=== PATIENT | male | born 1970 | race Caucasian/White ===

== ENCOUNTER → 2018-07-09 11:41 | Outpatient (CLI) | payer SELFPAY ==
[2018-07-09 15:46] LABS: AST(SGOT) 24 U/L (15-37); Alanine Aminotransfer ALT/SGPT 51 U/L (16-61); Albumin, Serum 3.9 g/dL (3.2-5.0); Alkaline Phosphatase 80 U/L (45-117); Anion Gap 12 (5-15); BUN 12 mg/dL (7-18); BUN/Creat Ratio 10.6 RATIO (10-20); Chloride 106 mmol/L (98-107); Cholesterol 192 mg/dL (200); Creatinine, Serum 1.13 mg/dL (0.70-1.30); EST Glomerular Filtration Rate 74 mL/min (>60); Est Glom Filt Rate - Afr Amer 89 mL/min (>60); Globulin 3.9 g/dL (2.2-4.2); Glucose 89 mg/dL (74-106); High Density Lipoprotein 39 mg/dL; Potassium 4.1 mmol/L (3.5-5.1); Protein, Total 7.8 g/dL (6.4-8.2); Sodium Level 143 mmol/L (136-145); Thyroid Stim Hormone (TSH) 2.35 uIU/mL (0.358-3.74); Triglycerides 154 mg/dL; Very Low Density Lipoprotein 31 mg/dL (5-40)
[2018-07-09 15:49] LABS: Absolute Lymphocyte Count 1.83 X10^3/ul (0.83-4.51); Absolute Neutrophil Count 3.6 X10^3/uL (2.0-7.7); Basophil# 0.03 X10^3/uL; Basophil% 0.5 % (0-1); Eosinophil# 0.21 X10^3/uL; Eosinophils% 3.4 % (0-5); Hematocrit 47.6 % (40-54); Hemoglobin 16.1 g/dl (13.0-16.5); Lymphocyte # 1.83 X10^3/ul (4.0); Lymphocyte % 29.5 % (19-41); Mean Corp Hgb Conc 33.8 g/gl (32-36); Mean Corpuscular Hgb 31.6 pg (27.0-32.0); Mean Corpuscular Volume 93.5 fL (80-94); Mean Platelet Vol. 10.5 fl (6.2-12.0); Monocyte% 8.1 % (0-10); Neutrophil # 3.62 X10^3/uL (2.7-7.7); Neutrophil % 58.3 % (47-70); Platelet Count 272 K/mm3 (150-450); RBC Distribution Width SD 44.4 fl (35.1-43.9); Red Blood Count 5.09 M/mm3 (4.6-6.2); White Blood Count 6.2 K/mm3 (4.4-11.0)
[2018-07-09 16:12] LABS: POSITIVE COUNT NO; POSITIVE DIFFERENTIAL NO; POSITIVE MORPHOLOGY NO
[2018-07-09 16:13] LABS: Hemoglobin A1c 5.5 % (4.2-6.3)
== END ==
PROVIDERS: Family Provider Family Medicine; PCP Family Medicine; Visit Provider Family Medicine
DX: Z00.00 Encounter for general adult medical examination without abnormal findings (principal); R53.81 Other malaise; R53.83 Other fatigue
CPT/HCPCS: 36415; 80053; 80061; 83036; 84443; 85025

== ENCOUNTER → 2020-08-14 12:48 | Outpatient (CLI) | payer OTHER, SELFPAY ==
--- NOTE | 2020-08-14 12:52 | ECHOD_ITS ---
Reason For Study: unspecified atrial fibrillation Procedure This was a 2D Doppler, Color Flow transthoracic echocardiogram. The exam was of adequate technical quality. Exam performed in department. Left Ventricle Normal LV size. Left ventricular systolic function is normal. The estimated ejection fraction is 65 %. No evidence for diastolic dysfunction. No regional wall motion abnormalities noted. Right Ventricle Normal RV size. Normal systolic function. Atria Normal left atrium. Normal right atrium. No doppler evidence for ASD. Mitral Valve There is no mitral annular calcification. Mild diffuse mitral valve thickening. Trivial mitral valve insufficiency. Tricuspid Valve Normal tricuspid valve. Trivial tricuspid valve insufficiency. Unable to estimate RV systolic pressure due to insufficient tricuspid regurgitant envelope. Aortic Valve Trisinus/trileaflet aortic valve. Normal aortic valve. Pulmonic Valve The pulmonic valve is not well visualized. Great Vessels Normal sized aortic root. Pericardium/Pleural No pericardial effusion. MMode/2D Measurements & Calculations LVIDd: 4.6 cm IVSd: 0.99 cm Ao root diam: 3.2 cm LVIDs: 2.9 cm LVPWd: 1.0 cm FS: 38.2 % LAV(MOD-bp): 54.5 ml LA A4 area: 18.8 cm2 LA dimension(2D): 3.5 cm LAV(MOD-bp) Indexed: 26.1 ml/m2 LAV(MOD-sp2): 54.6 ml LAV(MOD-sp4): 54.6 ml RA A4 area: 17.8 cm2 Time Measurements MV dec time: 0.20 sec Doppler Measurements & Calculations MV E max garrett: 67.6 cm/sec Lat Peak E' Garrett: 10.8 cm/sec Med Peak E' Garrett: 10.5 cm/sec MV A max garrett: 46.0 cm/sec E/E' lat: 6.3 E/E' med: 6.4 MV E/A: 1.5 Ao V2 max: 128.6 cm/sec LV V1 max: 109.1 cm/sec PA V2 max: 131.2 cm/sec Ao max P.6 mmHg LV V1 max P.8 mmHg Interpretation Summary Left ventricular systolic function is normal. The estimated ejection fraction is 65 %. Mild diffuse mitral valve thickening. Trivial mitral valve insufficiency. Trivial tricuspid valve insufficiency. Unable to estimate RV systolic pressure due to insufficient tricuspid regurgitant envelope. No evidence for diastolic dysfunction. Ordering Physician: Radha Jorgensen Referring Physician: Radha Jorgensen Performed By: Sheree Gee, CIARRA, RVT
== END ==
PROVIDERS: PCP Family Medicine; Referring Provider Family Medicine; Visit Provider Family Medicine
DX: I48.91 Unspecified atrial fibrillation (principal)
CPT/HCPCS: 93306

== ENCOUNTER → 2020-10-27 | Outpatient (CLI) | payer OTHER, SELFPAY ==
[2020-08-26 15:11] VITALS: BMI 28.3
== END | disposition home or self-care (01) ==
PROVIDERS: PCP Family Medicine; Visit Provider Family Medicine
DX: L03.039 Cellulitis of unspecified toe (principal)
CPT/HCPCS: 87070; 87077; 87205

== ENCOUNTER 2020-12-18 10:30 | Observation (INO) | payer OTHER, SELFPAY ==
[2020-08-26 15:11] VITALS: BMI 28.3
[2020-12-18] VITALS (17 sets, daily range): BP systolic 105–138; BP diastolic 54–80; PULSE 57–77; RESP 12–20; TEMP 36.2–37.1; O2SAT 94–98; BMI 28.7; BMI 28.8
--- NOTE | 2020-12-18 11:06 | RAD_ITS ---
STUDY: X-RAY CHEST REASON FOR EXAM: Male, 50 years old. Chest pain TECHNIQUE: Single AP portable view of the chest. COMPARISON: None. FINDINGS: EKG electrodes are seen. The lungs are clear and expanded. There is no demonstrated pleural abnormality. Normal size heart. A telemetry device is seen overlying the mid thorax. Normal mediastinum and antelmo. Normal visualized pulmonary arteries. Normal visualized aortic arch and descending thoracic aorta. Normal visualized thoracic spine. Normal visualized ribs, clavicles, and shoulders. There is no demonstrated abnormality of the visualized soft tissue structures of the upper abdomen. RAD/Chest 1 View (Portable) IMPRESSION: No acute abnormality is seen. Electronically Signed: Raymond Mendiola MD at 12:32 EDT , Service support ,
--- NOTE | 2020-12-18 11:06 | EKG12_ITS ---
Test Reason : PALPS Blood Pressure : / mmHG Vent. Rate : 065 BPM Atrial Rate : 065 BPM P-R Int : 140 ms QRS Dur : 090 ms QT Int : 390 ms P-R-T Axes : 056 042 027 degrees QTc Int : 405 ms Normal sinus rhythm Normal ECG Confirmed by JUSTIN TAY, SONG ([id number]), publications editor MARYCRUZ MENA ([id number]) on 12/21/2020 1:10:18 PM Referred By: ANA Confirmed By:SONG ANDERSON MD
--- NOTE | 2020-12-18 11:07 | EDS_ITS ---
HPI History of Present Illness Chief Complaint: Palpitations Informant: patient Narrative Narrative: 50-year-old male was sent to the emergency room by his registered medical transcriptionist after event monitor revealed an episode of atrial fibrillation that led to ventricular tachycardia. Patient states that he was doing CrossFit at the time. He has been admitted to outside facility for A. fib that broke during the night. He has had episodes where he felt he was possibly in A. fib. Were these continued episodes that led to the event monitor. Patient denies any symptoms at the current time [facility] Medical History (Updated 12/18/20 @ 11:[address] Sina Vazquez DO) New onset atrial fibrillation (08/03/20) Home Medications aspirin 325 mg tablet 325 mg PO DAILY 08/24/20 [History Last Taken Unknown] amoxicillin-pot clavulanate 1 tab PO DAILY 12/18/20 [History Last Taken Unknown] Allergy/AdvReac Type Severity Reaction Status Date / Time No Known Allergies Allergy Verified 12/18/20 10:31 Family History Father Lung cancer Surgical History History of Achilles tendon repair Social History Smoking Status: Never smoker alcohol intake: current alcohol intake frequency: holidays/special occasions only ROS ROS ED Constitutional Constitutional ED: Denies chills or weight loss Eyes Eyes: Denies change in vision or diplopia ENT ENT ED: Denies ear pain, rhinorrhea or sore throat Cardiovascular Cardiovascular: Reports chest pain and palpitations; Denies orthopnea or racing heartbeat Respiratory/Chest Respiratory/Chest: Denies cough, dyspnea or orthopnea Gastrointestinal Gastrointestinal: Denies abdominal pain, diarrhea, nausea or vomiting Genitourinary Genitourinary ED: Denies dysuria, hematuria or urinary frequency Musculoskeletal Musculoskeletal: Denies arthralgias or myalgias Integumentary Denies abscess or rash Neurologic Neurologic: Denies headache(s) or weakness Psychiatric Psychiatric: Denies anxiety, depression, suicidal ideation or suicidal thoughts Endocrine Endocrinology: Denies polydipsia, polyphagia or polyuria Allergic/Immunologic Allergic/Immunologic ED: Denies mouth swelling, tongue swelling or urticaria EXAM Physical Exam Const Vital Signs: 12/18/20 10:31 12/18/20 10:38 Temperature 97.2 F L Temperature Source Temporal Pulse Rate 65 Respiratory Rate 14 Respiratory Effort Normal Non-Labored Respiratory Pattern Normal Blood Pressure 132/63 H Blood Pressure Mean 86 Pulse Ox 98 Oxygen Delivery Method Room Air Positive well nourished and well developed General Appearance ED: well developed HEENT Reports normocephalic, head/scalp atraumatic and moist mucous membranes Eyes PERRL and EOMs intact bilaterally Neck no lymphadenopathy, supple and no JVD Resp normal respiratory effort and clear to auscultation bilaterally Cardio regular rate, regular rhythm and no murmurs GI normal to inspection, nondistended, normoactive bowel sounds and non-tender Palpation: soft Back/Spine no CVA tenderness and normal ROM Extremity normal to inspection General Extremety ED: Negative for edema General Extremity: Negative for edema Neuro oriented x3 and CN's II-XII intact bilaterally Sensorium / Orientation: alert Motor Exam: strength 5/5 throughout Psych mental status grossly normal Mood & Affect: Negative for depressed or tearful Skin no rashes or lesions noted and no wounds Heart Score History: Highly Suspicious ECG: Normal Age: >45 - <65 years Risk Factors: No Risk Factors Troponin: </= Normal Limit Score: 3 MDM MDM MDM Narrative Medical decision making narrative: My interpretation of the chest x-ray is no acute process. Basic blood work was obtained and was negative. Normal TSH and magnesium. Troponin 5.7. Patient was seen and evaluated by cardiology here in the department. Plan is admission for heart catheterization. He has had no events on the monitor. Lab Data Attestation: I reviewed the patient's lab results. Labs: Laboratory Results - last 24 hr 12/18/20 12/18/20 12/18/20 10:50 10:50 10:50 WBC 5.7 RBC 5.05 Hgb 15.7 Hct 47.8 MCV 94.7 H MCH 31.1 MCHC 32.8 RDW Std Deviation 44.3 H RDW Coeff of Scar 12.8 Plt Count 303 MPV 9.6 Immature Gran % (Auto) 0.300 Neut % (Auto) 60.8 Lymph % (Auto) 25.1 [place] % (Auto) 10.8 H Eos % (Auto) 2.1 Baso % (Auto) 0.9 Absolute Neuts (auto) 3.5 Absolute Lymphs (auto) 1.44 Nucleated RBC % 0 PT 12.5 INR 1.0 APTT 28.8 Sodium 139 Potassium 4.4 Chloride 108 H Carbon Dioxide 27.0 Anion Gap 4 L BUN 15 Creatinine 1.12 Estim Creat Clear Calc 82.38 Est GFR (MDRD) Af Amer 89 Est GFR (MDRD) Non-Af 74 BUN/Creatinine Ratio 13.4 Glucose 92 Calcium 8.6 Magnesium 2.1 Troponin I High Sens 5.7 TSH 2.47 EKG Initial EKG: Attestation: I personally reviewed and interpreted this EKG as follows: Comments: EKG demonstrates a normal sinus rhythm at a ventricular rate of 65 bpm. No concerning features of ACS or ectopy noted. Discharge Plan Dx/Rx/DC Orders Clinical Impression: Chest pain, Paroxysmal atrial fibrillation, Ventricular tachycardia Disposition Disposition: Acute Care Hospital [facility]
[2020-12-18 11:17] LABS: Absolute Lymphocyte Count 1.44 X10^3/uL (0.83-4.51); Absolute Neutrophil Count 3.5 X10^3/uL (2.0-7.7); Basophil# 0.05 X10^3/uL; Basophil% 0.9 % (0-1); Eosinophil# 0.12 X10^3/uL; Eosinophils% 2.1 % (0-5); Hematocrit 47.8 % (40-54); Hemoglobin 15.7 g/dL (13.0-16.5); Lymphocyte # 1.44 X10^3/ul (0.83-4.51); Lymphocyte % 25.1 % (19-41); Mean Corp Hgb Conc 32.8 g/dL (32-36); Mean Corpuscular Hgb 31.1 pg (27.0-32.0); Mean Corpuscular Volume 94.7 fL (80-94); Mean Platelet Vol. 9.6 fl (6.2-12.0); Monocyte# 0.62 X10^3/uL; Monocyte% 10.8 % (0-10); NRBC Flagged by Analyzer 0 % (0-5); Neutrophil # 3.48 X10^3/uL (2.7-7.7); Neutrophil % 60.8 % (47-70); Platelet Count 303 K/mm3 (150-450); RBC Distribution Width CV 12.8 % (11.6-14.6); RBC Distribution Width SD 44.3 fl (35.1-43.9); Red Blood Count 5.05 M/mm3 (4.6-6.2); White Blood Count 5.7 K/mm3 (4.4-11.0)
[2020-12-18 11:49] LABS: Anion Gap 4 (5-15); BUN 15 mg/dL (7-18); BUN/Creat Ratio 13.4 RATIO (10-20); Calcium,Total 8.6 mg/dL (8.5-10.1); Chloride 108 mmol/L (98-107); Creatinine, Serum 1.12 mg/dL (0.70-1.30); EST Glomerular Filtration Rate 74 mL/min (>60); Est Glom Filt Rate - Afr Amer 89 mL/min (>60); Estimated Creatinine Clearance 82.38 ml/min; Glucose 92 mg/dL (74-106); Magnesium 2.1 mg/dL (1.6-2.6); Potassium 4.4 mmol/L (3.5-5.1); Sodium Level 139 mmol/L (136-145); Thyroid Stim Hormone (TSH) 2.47 uIU/mL (0.358-3.74); Troponin-I HS 5.7 pg/mL (3.0-78.5)
[2020-12-18 12:02] LABS: Prothrombin Time (Protime)PT. 12.5 SECONDS (11.7-14.9)
[2020-12-18 12:03] LABS: Partial Thromboplast Time 28.8 Seconds (24.1-36.2)
--- NOTE | 2020-12-18 12:18 | HP.PCM.HOS_ITS ---
HPI - General General Date of Admission: 12/18/20 Date of Service: 12/18/20 Chief Complaint: fatigue HPI Narrative VALENCIA SONI, is a 50 M who presents presents after being found to have ventricular tachycardia. Patient has a history of paroxysmal atrial fibrillation which was diagnosed in July. At that time, patient was having palpitations and chest pain. Patient seen cardiology and has been wearing a monitor. Patient was at Cross[employer] today did not have palpitations but just felt more tired than usual. Patient has been doing CrossFit for 6 months and is done these exercises before so this is not new for him. Apparently on the heart monitor, patient was noted to have atrial fibrillation that developed into ventricular tachycardia. Patient was subsequently directed to the emergency room. Work-up in the emergency room was unremarkable. Emergency room reached out to cardiology who recommended admission under the hospitalist service and plan for a cardiac catheterization at some point today. [facility] Medical History (Updated 12/18/20 @ 12:[address] Mauricio Simons DO) New onset atrial fibrillation (08/03/20) Paroxysmal atrial fibrillation Raynaud disease Home Medications aspirin 325 mg tablet 325 mg PO DAILY 08/24/20 [History Last Taken Unknown] amoxicillin-pot clavulanate 1 tab PO DAILY 12/18/20 [History Last Taken Unknown] Allergy/AdvReac Type Severity Reaction Status Date / Time No Known Allergies Allergy Verified 12/18/20 10:31 Family History (Updated 12/18/20 @ 12:[address] Mauricio Simons DO) Father Lung cancer Surgical History History of Achilles tendon repair Social History Smoking Status: Never smoker alcohol intake: current alcohol intake frequency: holidays/special occasions only NIKHIL Braun Feels fine currently. All review of systems were negative except as mentioned above in the history of present illness and the other review of systems. Vital Signs Vital Signs Vital Signs: 12/18/20 10:31 12/18/20 10:38 Temperature 36.2 C L Temperature Source Temporal Pulse Rate 65 Respiratory Rate 14 Respiratory Effort Normal Non-Labored Respiratory Pattern Normal Blood Pressure 132/63 H Blood Pressure Mean 86 Pulse Ox 98 Oxygen Delivery Method Room Air Weight Weight: 90.7 kg Body Mass Index (BMI) 28.7 Physical Exam Const alert General Appearance: cooperative HEENT normocephalic Resp normal respiratory effort, no use of accessory muscles and clear to auscultation bilaterally Cardio regular rate, regular rhythm, S1 normal heart sound and S2 normal heart sound GI normal to inspection, nondistended, normoactive bowel sounds, soft to palpation, non-tender and non-distended Extremity normal to inspection Skin no rashes or lesions noted Neuro Sensorium / Orientation: awake and alert Results Lab / Micro Data Attestation: I reviewed the patient's lab results. Result Diagrams: 12/18/20 10:50 12/18/20 10:50 Labs: Laboratory Results - last 24 hr 12/18/20 12/18/20 12/18/20 10:50 10:50 10:50 WBC 5.7 RBC 5.05 Hgb 15.7 Hct 47.8 MCV 94.7 H MCH 31.1 MCHC 32.8 RDW Std Deviation 44.3 H RDW Coeff of Scar 12.8 Plt Count 303 MPV 9.6 Immature Gran % (Auto) 0.300 Neut % (Auto) 60.8 Lymph % (Auto) 25.1 [place] % (Auto) 10.8 H Eos % (Auto) 2.1 Baso % (Auto) 0.9 Absolute Neuts (auto) 3.5 Absolute Lymphs (auto) 1.44 Nucleated RBC % 0 PT 12.5 INR 1.0 APTT 28.8 Sodium 139 Potassium 4.4 Chloride 108 H Carbon Dioxide 27.0 Anion Gap 4 L BUN 15 Creatinine 1.12 Estim Creat Clear Calc 82.38 Est GFR (MDRD) Af Amer 89 Est GFR (MDRD) Non-Af 74 BUN/Creatinine Ratio 13.4 Glucose 92 Calcium 8.6 Magnesium 2.1 Troponin I High Sens 5.7 TSH 2.47 EKG Initial EKG: Attestation: I personally reviewed and interpreted this EKG as follows: Prior EKG tracings: available for review EKG Rhythm Intrepretation: Sinus Rhythm Chest x-ray personally reviewed and showed normal airways by pulmonary vascular congestion or infiltrate Echocardiogram from August 14 showed an EF of 65% but was otherwise unremarkable. Assessment & Plan Assessment/Plan (1) Paroxysmal atrial fibrillation: (2) Ventricular tachycardia: PLAN: 1. Paroxysmal ventricular tachycardia Noted on cardiac monitoring as outpatient Cardiology aware and plan is for cardiac catheterization today 2. Paroxysmal atrial fibrillation Chads vas score of 0 Continue with aspirin 3. Raynaud's Stable at this time Charges/Coding Visit Charges OBSV E&M: 88454 Initial observation care L2
--- NOTE | 2020-12-18 13:14 | CASEMGMT ---
According to the [employer] website, the following are in-network tertiary facilities: [facility], [facility], [facility], [facility], and . Dominik MITCHELL CM
--- NOTE | 2020-12-18 13:49 | CL.D_ITS ---
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 The risks and benefits of the procedure as well as a full d escription of our services here and current unavailability of surgical backup were fully explained to the patient and/or their significant other prior to the catheterization. The Timeout was completed, verifying the correct patient and procedure. The patient's procedural site was prepped and draped in the usual fashion. Local anesthetic was given subcutaneously to right radial region with Lidocaine 2% . Using a modified Seldinger technique, arterial access was obtained via the right radial artery, a 6 Fr sheath was inserted. Right Coronary Artery selective angiography was then performed in multiple v iews using a 5 Fr. 4.0 Wamsutter catheter. Left Coronary Artery selective angiography was performed in mu ltiple views using a 5 Fr. 4.0 Wamsutter catheter. Left Ventriculography was performed in FIGUEROA projection using a 5 Fr. Pigtail catheter. LV to AO pullback pressures were then recorded.The arterial sheath was pulled and a TR Band was applied for hemostasis w/ 11ml air CORONARY ANGIOGRAPHY DOMINANCE: Right Dominant LEFT HEART ASSESSMENT Left Ventricular Ejection Fraction: by LV Gram 60 % Normal LV wall motion Normal Left Ventricular systolic function LEFT MAIN: Angiographically normal LEFT ANTERIOR DESCENDING ARTERY: MID LAD: Intramyocardial bridging DIAGONAL 1: Ostial - 50 % Stenosis CIRCUMFLEX ARTERY: Angiographically normal RIGHT CORONARY ARTERY: Angiographically normal COMPLICATIONS No Complications PROCEDURE MEDICATIONS Versed 1 mg IV Fentanyl 50 mcg IV Versed 1 mg IV Oxygen: 2 L/min via nasal cannula Heparin given IA 12/18/2020 13:22:36 Verapamil 2.5mg, Ntg 100mcgs, 2000 units of Heparin given IA 12/18/2020 13:22:36 SUMMARY OF HEMODYNAMIC DATA Time AIR REST ECG 13:02:57 AO 110/72 (89) SA 13:24:13 LV 115/9, 15 13:29:11 LV 98/2, 7 13:29:51 LV 93/3, 8 13:30:25 LV 96/5, 11 13:30:32 LVp 98/6, 10 13:30:35 AOp 111/71 (88) 13:30:40 13:43:56 Signed By Kaiser Vargas MD On 12/18/2020 1:48:38 PM Kaiser Vargas MD
[2020-12-18] MEDS: 0.9% Normal Saline 1,000 ML 60 ML IV (14:15)
--- NOTE | 2020-12-18 16:10 | CON.PCM.CA_ITS ---
Assessment & Plan Assessment/Plan (1) Ventricular tachycardia: PLAN: Patient presents with wide-complex tachycardia suggestive of ventricular tachycardia. His cardiac catheterization did not demonstrate any high-grade obstructive coronary disease. I would recommend at this stage that we place him on a beta-amina and recommend a cardiac MRI. Due to the very fast rate I would recommend that he see the rim fire priming operator. We will make arrangements to transfer him to [facility] for the above. (2) Paroxysmal atrial fibrillation: PLAN: It does appear that he has paroxysmal atrial fibrillation. It is not clear whether this degenerated into ventricular tachycardia or otherwise. My recommendation at this time will be to keep him on aspirin pending further EP evaluation. I have discussed the above in detail with the patient and his they understand and agree to proceed. HPI Consult Data Date of Consult: 12/18/20 HPI Narrative HPI Narrative: VALENCIA SONI, is a 50 M who presents urgently after noting that he had an abnormality on his event monitor. He had presented to see us in the office a few weeks ago with palpitations and shortness of breath. 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 Cardiac enzymes were normal, TSH was normal and BT DEHYDRATOR OPERATOR was normal. He had been given intravenous diltiazem and spontaneously converted back to sinus rhythm. An echocardiogram performed demonstrated preserved ejection fraction, lipid profile was unremarkable and his EKG was unremarkable. His CHADS2 score was not enough to have him anticoagulated and he was discharged for outpatient follow-up from our office and had an event monitor placed. This morning he was noted to have had an event yesterday with a wide-complex tachycardia lasting approximately 21 seconds with a rate of approximately 300 bpm. He subsequently went into what appears to be atrial fibrillation with a rapid ventricular response rate. He had been exercising shortly before this. He said that he uses energy drinks and had actually used some prior to this event. He was noted to be mildly fatigued but no dizziness diaphoresis near syncope or syncope. He was called to come to the hospital urgently and underwent a cardiac catheterization which demonstrated mid LAD intramyocardial bridging but no high-grade stenosis his ejection fraction was noted to be normal. [facility] Medical History New onset atrial fibrillation (08/03/20) Paroxysmal atrial fibrillation Raynaud disease Home Medications aspirin 325 mg tablet 325 mg PO DAILY 08/24/20 [History Last Taken 12/17/20] amoxicillin-pot clavulanate 1 tab PO DAILY 12/18/20 [History Last Taken 12/17/20] Allergy/AdvReac Type Severity Reaction Status Date / Time No Known Allergies Allergy Verified 12/18/20 10:31 Family History Father Lung cancer Surgical History History of Achilles tendon repair Social History Smoking Status: Never smoker alcohol intake: current alcohol intake frequency: holidays/special occasions only ROS Constitutional Constitutional: Denies fever(s) or weight loss Eyes Eyes: Reports as per HPI ENT HEENT: Reports as per HPI Cardiovascular Cardiovascular: Reports other Respiratory/Chest Respiratory/Chest: Reports other Gastrointestinal Gastrointestinal: Denies change in bowel habits, nausea, vomiting or weight changes Genitourinary Genitourinary: Denies difficulty urinating Musculoskeletal Musculoskeletal: Denies joint stiffness or muscle weakness Integumentary Integumentary: Denies lesions Neurologic Neurologic: Denies dizziness or syncope Psychiatric Psychiatric: Denies anxiety Endocrine Endocrinology: Denies excessive sweating or fatigue Hematologic/Lymphatic Hematologic/Lymphatic: Denies anemia Allergic/Immunologic Allergic/Immunologic: Denies seasonal rhinorrhea Physical Exam Const oriented x3 and healthy appearing Orientation / Consciousness: awake HEENT normocephalic Eyes PERRL and conjunctivae normal Neck supple, no JVD and no carotid bruits Chest inspection of chest normal Resp normal respiratory effort and clear to auscultation bilaterally Cardio Palpation: normal PMI Rate: regular rate Rhythm: regular rhythm Heart Sounds: S1 normal and S2 normal Peripheral Pulses: pulses 2+ throughout GI normal to inspection, nondistended, normoactive bowel sounds Extremity normal to inspection and no clubbing, cyanosis or edema Psych mental status grossly normal Objective Data Vital Signs: Vital Signs Temp Pulse Resp BP Pulse Ox 98.6 F 71 12 113/57 L 95 12/18/20 14:41 12/18/20 15:55 12/18/20 15:55 12/18/20 15:55 12/18/20 15:55 Oxygen Delivery Method Room Air Weight: 200 lb 9.93 oz Body Mass Index (BMI) 28.8 Lab / Micro Data Result Diagrams: 12/18/20 10:50 12/18/20 10:50 Labs: Laboratory Results - last 24 hr 12/18/20 12/18/20 12/18/20 10:50 10:50 10:50 WBC 5.7 RBC 5.05 Hgb 15.7 Hct 47.8 MCV 94.7 H MCH 31.1 MCHC 32.8 RDW Std Deviation 44.3 H RDW Coeff of Scar 12.8 Plt Count 303 MPV 9.6 Immature Gran % (Auto) 0.300 Neut % (Auto) 60.8 Lymph % (Auto) 25.1 [place] % (Auto) 10.8 H Eos % (Auto) 2.1 Baso % (Auto) 0.9 Absolute Neuts (auto) 3.5 Absolute Lymphs (auto) 1.44 Nucleated RBC % 0 PT 12.5 INR 1.0 APTT 28.8 Sodium 139 Potassium 4.4 Chloride 108 H Carbon Dioxide 27.0 Anion Gap 4 L BUN 15 Creatinine 1.12 Estim Creat Clear Calc 82.38 Est GFR (MDRD) Af Amer 89 Est GFR (MDRD) Non-Af 74 BUN/Creatinine Ratio 13.4 Glucose 92 Calcium 8.6 Magnesium 2.1 Troponin I High Sens 5.7 TSH 2.47 Cardiology Labs/Tests 12/18/20 10:50: WBC 5.7, RBC 5.05, Hgb 15.7, Hct 47.8, MCV 94.7 H, MCH 31.1, MCHC 32.8, Plt Count 303, MPV 9.6, Immature Gran % (Auto) 0.300, Neut % (Auto) 60.8, Lymph % (Auto) 25.1, [place] % (Auto) 10.8 H, Eos % (Auto) 2.1, Baso % (Auto) 0.9, Absolute Neuts (auto) 3.5, Nucleated RBC % 0 12/18/20 10:50: PT 12.5, INR 1.0, APTT 28.8 12/18/20 10:50: Sodium 139, Potassium 4.4, Chloride 108 H, Carbon Dioxide 27.0, Anion Gap 4 L, BUN 15, Creatinine 1.12, Est GFR (MDRD) Af Amer 89, Est GFR (MDRD) Non-Af 74, BUN/Creatinine Ratio 13.4, Glucose 92, Calcium 8.6, Magnesium 2.1 Rhythm: EKG: ECHO: Stress Test: Cardiac Cath: PCI: CT Surgery: Holter monitor: EPS: PPM: CXR: Chest CT Scan: Radiography Diagnostic Testing: Radiology Impression Chest X-Ray 12/18/20 11:06 IMPRESSION: No acute abnormality is seen. Electronically Signed: Raymond Mendiola MD at 12:32 EDT , Service support ,
[2020-12-18] MEDS: Metoprolol Tartrate 25 MG Tablet PO (21:08)
[2020-12-19 02:57] VITALS: PULSE 68
[2020-12-19 03:00] VITALS: BP 113/62; PULSE 61; RESP 16; TEMP 36.6; O2SAT 96
[2020-12-19] MEDS: 0.9% Normal Saline 1,000 ML 60 ML IV (05:01)
--- NOTE | 2020-12-19 06:04 | NURSING ---
[facility]ed [facility] and given report to PAULA Begum.
[2020-12-19 06:59] VITALS: PULSE 54
[2020-12-19 08:27] VITALS: BP 102/57; PULSE 55; RESP 16; TEMP 36.1; O2SAT 98
[2020-12-19] MEDS: Aspirin 325 MG Tablet PO (08:35)
[2020-12-19] MEDS: Amox/Clavulanate 875 MG Tablet PO (08:35)
[2020-12-19 08:38] VITALS: PULSE 56
[2020-12-19] MEDS: Metoprolol Tartrate 25 MG Tablet PO (08:38)
--- NOTE | 2020-12-19 08:55 | PCM.DC.SUM ---
Providers Date of Admission: 12/18/20 Primary Care Physician: Dr. Radha Jorgensen MD Consultations 12/18/20 14:16 Consult: Cardiology Routine Consulting Provider: Kaiser Vargas Reason for Consult: VT EMERGENT Consult: No MD Notified: Yes Date Notified: 12/18/20 Time Notified: 12:17 Method of Notification: Verbal Reason For Visit: [place] Diagnosis Discharge Diagnosis (1) Ventricular tachycardia: Status: Acute Code(s): I47.2 - Ventricular tachycardia (2) Paroxysmal atrial fibrillation: Status: Acute Code(s): I48.0 - Paroxysmal atrial fibrillation Medications at Discharge Home Medications aspirin 325 mg tablet 325 mg PO DAILY 08/24/20 amoxicillin-pot clavulanate 1 tab PO DAILY 12/18/20 Hospital Course Operations None Procedures Cardiac catheterization Summary of Care Provided Minutes Spent on Discharge: 26 Hospital Course: A 50-year-old male who has been having paroxysmal atrial fibrillation. Was wearing a cardiac cath lab technologist and was at the gym and then was just feeling off. It was revealed that the patient did have paroxysmal ventricular tachycardia. Patient was directed to the emergency room cardiology recommended beta-amina as well as electrophysiology evaluation. Patient has been accepted and that will be transferred to the [facility]. Overnight, patient had no evidence of any arrhythmia and feels fine at this time. Physical Exam Const alert and no apparent distress Neuro Neuro Narrative: Normal gait. Psych affect normal Weight / BMI Weight Weight: 91 kg Body Mass Index (BMI) 28.8 ABG / Lab / Microbiology Data Result Diagrams: 12/18/20 10:50 12/18/20 10:50 Laboratory: Laboratory Results - last 24 hr 12/18/20 12/18/20 12/18/20 10:50 10:50 10:50 WBC 5.7 RBC 5.05 Hgb 15.7 Hct 47.8 MCV 94.7 H MCH 31.1 MCHC 32.8 RDW Std Deviation 44.3 H RDW Coeff of Scar 12.8 Plt Count 303 MPV 9.6 Immature Gran % (Auto) 0.300 Neut % (Auto) 60.8 Lymph % (Auto) 25.1 [place] % (Auto) 10.8 H Eos % (Auto) 2.1 Baso % (Auto) 0.9 Absolute Neuts (auto) 3.5 Absolute Lymphs (auto) 1.44 Nucleated RBC % 0 PT 12.5 INR 1.0 APTT 28.8 Sodium 139 Potassium 4.4 Chloride 108 H Carbon Dioxide 27.0 Anion Gap 4 L BUN 15 Creatinine 1.12 Estim Creat Clear Calc 82.38 Est GFR (MDRD) Af Amer 89 Est GFR (MDRD) Non-Af 74 BUN/Creatinine Ratio 13.4 Glucose 92 Calcium 8.6 Magnesium 2.1 Troponin I High Sens 5.7 TSH 2.47 Radiography Diagnostic Testing: Radiology Impression Chest X-Ray 12/18/20 11:06 IMPRESSION: No acute abnormality is seen. Electronically Signed: Raymond Mendiola MD at 12:32 EDT , Service support , D/C Instructions Discharge Diet: No restrictions Meaningful Use Info Meaningful Use Diagnoses (Choose all that apply): None applicable Discharge Plan Admission Admit Date/Time: 12/18/20 12:18 Attending Provider: Mauricio Simons Primary Care Provider: Radha Jorgensen Consulting Providers: [facility] Vargas Instructions Patient Instructions: ED Chest Pain, Noncardiac Discharge Orders/Prescriptions Prescriptions: No Action aspirin 325 mg tablet 325 mg PO DAILY RF: 0 amoxicillin-pot clavulanate 875-125 mg tablet 1 tab PO DAILY RF: 0 Referrals / Follow Up: Radha Jorgensen MD [Primary Care Provider] - Disposition Disposition (needs filled in before D/C Order can be placed): Acute Care Hospital Charges/Coding Visit Charges OBSV E&M: 45237 Observation care discharge
== END 2020-12-19 08:57 | disposition short-term general hospital (02) ==
LOC: ED 11:18 → PCU 12:59
PROVIDERS: Emergency Provider Emergency Medicine; PCP Family Medicine
DX: I48.0 Paroxysmal atrial fibrillation (principal); I47.2 Ventricular tachycardia; I73.00 Raynaud's syndrome without gangrene; I25.10 Atherosclerotic heart disease of native coronary artery without angina pectoris; Z79.82 Long term (current) use of aspirin
CPT/HCPCS: 71045; 80048; 83735; 84443; 84484; 85025; 85610; 85730; 93005; 93458; 99152; 99153; 99218; 99285; J7030; A4216; C1769; C1894; G0378; Q9967

== ENCOUNTER → 2021-11-30 | Outpatient (CLI) | payer OTHER, SELFPAY ==
[2021-11-30 09:24] LABS: AST(SGOT) 17 U/L (15-37); Alanine Aminotransfer ALT/SGPT 29 U/L (16-61); Albumin, Serum 3.6 g/dL (3.2-5.0); Alkaline Phosphatase 60 U/L (45-117); Bilirubin, Direct 0.18 mg/dL (0.00-0.30); Cholesterol 221 mg/dL (200); Globulin 3.8 g/dL (2.2-4.2); High Density Lipoprotein 36 mg/dL; Protein, Total 7.4 g/dL (6.4-8.2); Triglycerides 106 mg/dL; Very Low Density Lipoprotein 21 mg/dL (5-40)
== END | disposition home or self-care (01) ==
PROVIDERS: PCP Family Medicine; Referring Provider Nurse Practitioner Gerontology; Visit Provider Nurse Practitioner Gerontology
DX: I25.10 Atherosclerotic heart disease of native coronary artery without angina pectoris (principal)
CPT/HCPCS: 36415; 80061; 80076

== ENCOUNTER → 2021-12-20 | Outpatient (CLI) | payer OTHER, SELFPAY | END | disposition home or self-care (01) | PROVIDERS: PCP Family Medicine; Visit Provider Family Medicine | DX: J20.9 Acute bronchitis, unspecified (principal) | CPT/HCPCS: 87070; 87077; 87186; 87205 ==

== ENCOUNTER → 2023-06-16 | Outpatient (CLI) | payer OTHER, SELFPAY ==
--- OUTSIDE RECORDS SUMMARY | 2023-06-16 11:55 | XMS RPT_ITS | CCD ---
Author Name Unknown Address [address] [place] [address] Organization [facility] Care Team Providers Care Certified Medicine Aide Name Role Phone RUTHIE, DR PALOMA Sen Attending Unavaila ble JOMAILE, RADHA Garcia Consulting Unavailable RUTHIE, DR PALOMA Sen Admitting Unavaila ble RUTHIE, DR PALOMA Sen Primary Care Unavaila ble PROVIDER, UNKNOWN Consulting Unavailable JOLLIFF, RADHA S Consulting Unavailable LOUISIFF, RADHA S Referring Unavailable ABRIL STEPHENSON MD Admitting Unavailable ABRIL STEPHENSON MD Primary Care Unavailable ABRIL STEPHENSON MD Attending Unavailable PROVIDER, UNKNOWN Consulting Unavailable Joslyn TAY, Radha Garcia Primary Care Provider [phone] Alicia TAY, Kaiser Garcia Unavailable OSCAR RODRÍGUEZ Attending Unavailable OSCAR RODRÍGUEZ Attending Unavailable SELF, SELF Referring Unavailable JOLLIFF, RADHA S Primary Care Unavailable NEEL HUDSON Attending Unavailable ENDY ANDERSEN Referring Unavailabl e JOLLIFF, RADHA S Primary Care Unavailable ENDY ANDERSEN Attending Unavailkathya e ENDY ANDERSEN Referring Unavailabl e JOLLIFF, RADHA S Primary Care Unavailable ENDY ANDERSEN Attending Unavailabl e JOLLIFF, RADHA S Primary Care Unavailable ENDY ANDERSEN Admitting Unavailkathya e ENDY ANDERSEN Attending Unavailkathya e Medications Current Medications Medication Drug Class(es) Dates Sig (Normalized) Sig (Original) aspirin 81 mg chewable tablet (4 sources) Platelet Aggregation Inhibitor, Nonsteroidal Anti-inflammatory Drug Start: 05-11-2022 aspirin 81 MG Chew Tab chewable tablet Chew 1 tablet daily every morning. Take for 30 days and then stop 0 05/11/2022 Active Completed/Discontinued Medications Medication Drug Class(es) Dates Sig (Normalized) Sig (Original) acetaminophen 325 mg oral tablet (1 source) Start: 05-09-2022 End: 05-10-2022 take 1 tablet by mouth every six hours as needed acetaminophen (TYLENOL) tablet 325 mg 1 ml HYDROmorphone hydrochloride 1 mg/ml cartridge (1 source) Opioid Agonist Start: 05-09-2022 End: 05-10-2022 take 0.2 mg intravenously every two hours as needed HYDROmorphone (DILAUDID) injection 0.2 mg iohexol (OMNIPAQUE) 350 MG/ML injection 1-120 mL (1 source) Start: 05-09-2022 End: 05-09-2022 iohexol (OMNIPAQUE) 350 MG/ML injection 1-120 mL magnesium oxide 400 mg oral tablet (1 source) Start: 05-09-2022 End: 05-10-2022 magnesium oxide (MAG-OX) tablet 800 mg 50 ml magnesium sulfate 80 mg/ml injection (1 source) Start: 05-09-2022 End: 05-10-2022 Magnesium Sulfate 4 g in sterile water 50 ml premix IVPB 2 ml ondansetron 2 mg/ml injection (1 source) Serotonin-3 Receptor Antagonist Start: 05-09-2022 End: 05-10-2022 ondansetron 4mg/2ml (ZOFRAN) injection 4 mg oxyCODONE (1 source) Opioid Agonist Start: 05-09-2022 End: 05-10-2022 take 1 tablet by mouth every four hours as needed oxyCODONE (ROXICODONE) tablet 5 mg microencapsulated potassium chloride 20 meq extended release oral tablet (2 sources) Start: 05-09-2022 End: 05-10-2022 potassium chloride (K-DUR) tablet ER 20 mEq Problems Active Problems Problem Classification Problem Date Documented Da te Episodic/Chronic Cardiac dysrhythmias (13 sources) Paroxysmal atrial fibrillation; Translations: [Paroxysmal atrial fibrillation] Onset: 08-03-2020 Chronic Cardiac dysrhythmias (2 sources) Tachycardia, unspecified; Translations: [Tachycardia, unspecified] Onset: 08-03-2020 Episodic Chronic obstructive pulmonary disease and bronchiectasis (1 source) Bronchitis, not specified as acute or chronic; Translations: [Bronchitis, not specified as acute or chronic] Onset: 06-13-2022 Episodic Other nutritional; endocrine; and metabolic disorders (1 source) Lipoprotein deficiency; Translations: [Lipoprotein deficiency] Onset: 08-03-2020 Chronic Other upper respiratory infections (1 source) Chronic sinusitis, unspecified; Translations: [Chronic sinusitis, unspecified] Onset: 06-13-2022 Chronic Unclassified (2 sources) ENCOUNTER FOR SCREENING FOR COVID-19; Translations: [ENCOUNTER FOR SCREENING FOR COVID-19] Onset: 09-03-2020 Unclassified (1 source) Ventricular tachycardia, unspecified; Translations: [Ventricular tachycardia, unspecified] Onset: 12-19-2020 Past or Other Problems Problem Classification Problem Date Documented Da te Episodic/Chronic Unclassified (1 source) ENCOUNTER FOR SCREENING FOR COVID-19; Translations: [ENCOUNTER FOR SCREENING FOR COVID-19] Onset: 09-03-2020 Unclassified (1 source) Ventricular tachycardia, unspecified; Translations: [Ventricular tachycardia, unspecified] Onset: 05-09-2022 Results Test Name Value Interpretation Reference Range Facil ity Vital Signs Date Time Vital Sign Value Performing Clinician Faci lity 05-10-2022 07:37-0500 Body temperature 97.5 [degF] Endy Wilder Work Phone: [facility] 05-10-2022 07:37-0500 Diastolic blood pressure 65 mm[Hg] Endy Andersen MD Work Phone: [facility] 05-10-2022 07:37-0500 Heart rate 65 /min Endy Wilder Work Phone: [facility] 05-10-2022 07:37-0500 Respiratory rate 16 /min Endy Wilder Work Phone: [facility] 05-10-2022 07:37-0500 SaO2% (BldA) [Mass fraction] 92 % Endy Andersen MD Work Phone: [facility] 05-10-2022 07:37-0500 Systolic blood pressure 116 mm[Hg] Endy Andersen MD Work Phone: [facility] 05-10-2022 00:30-0500 Body mass index (BMI) [Ratio] 29.59 kg/m2 Endy Andersen MD Work Phone: [facility] 05-10-2022 00:30-0500 Body weight 93.53 kg Endy Wilder Work Phone: [facility] 05-09-2022 08:18-0500 Body height 177.8 cm Endy Wilder Work Phone: [facility] 05-09-2022 08:18-0500 Diastolic blood pressure 58 mm[Hg] Endy Andersen MD Work Phone: [facility] 05-09-2022 08:18-0500 Heart rate 56 /min Endy Wilder Work Phone: [facility] 05-09-2022 08:18-0500 Systolic blood pressure 112 mm[Hg] Endy Andersen MD Work Phone: [facility] Encounters Encounter Date Encounter Type Care Provider Facility Start: 09-23-2022 ambulatory SELF SELF Facility:[facility] Start: 09-03-2022 End: 09-03-2022 ambulatory [facility] Start: 06-13-2022 End: 06-13-2022 ambulatory [facility] Start: 05-09-2022 End: 05-10-2022 ambulatory RADHA Radha JORGENSEN Facility:[facility] Start: 05-09-2022 End: 05-10-2022 Subsequent hospital visit by physician Endy Andersen MD Work Phone: [facility] Procedures Date Procedure Procedure Detail Performing Clinician Start: 05-10-2022 Assay of magnesium lEliott Andersen MD Work Phone: Start: 05-09-2022 Ecg routine ecg w/le ast 12 lds w/i&r Leno Dailey MD Work Phone: Start: 05-09-2022 Ephys evl trnsptl tx atrial fib isolat pulm vein Endy Andersen MD Work Phone: Start: 05-09-2022 ACT* LOW RANGE, POC Chad mecca Andersen MD Work Phone: Start: 05-09-2022 End: 05-09-2022 ACT* LOW RANGE, POC Endy Andersen MD Work Phone: Start: 05-09-2022 End: 05-09-2022 Assay of magnesium Agustin Weir [facility] Start: 05-09-2022 CBC AND ELECTRONIC DIFF Maria Eugenia Manuel CLINICAL PARTNER-PROMOTIONAL DEMONSTRATOR Work Phone: Start: 05-09-2022 Complete blood count with white cell differential, automated Maria Eugenia Manuel CLINICAL PARTNER-PROMOTIONAL DEMONSTRATOR Work Phone: Start: 05-09-2022 Ct heart contrast ev al cardiac structure&morph Endy Andersen MD Work Phone: Plan of Treatment Date Care Activity Detail Author Start: 08-15-2022 End: 08-15-2022 Patient encounter procedure 08/15/2022 Office Visit Electrophysiology Aleisha Eduardo, CLINICAL PARTNER-PROMOTIONAL DEMONSTRATOR [address] [place] [address] [facility] Start: 06-20-2022 End: 05-09-2023 Cardiac telemetry MOBILE CARDIAC TELEMETRY ECG Routine Paroxysmal atrial fibrillation Expected: 06/20/2022, Expires: 05/09/2023 [facility] Immunizations Immunization Date Immunization Notes Care Provider Fa cility 04-24-2020 influenza virus vaccine, unspecified formulation Endy Andersen MD Work Phone: [facility] Payers Date Payer Category Payer Unknown [id number] 2018 Unknown [employer] [id number] 2018-Present [id number] [place] [address] [id number] 1970 Unknown [id number] 1970 Unknown [id number] 1970 Unknown [id number] 1971 Unknown [id number] 1970 Unknown [id number] 1970 Unknown [id number] 1970 Unknown [id number] 1970 Unknown [id number] Social History Date Type Detail Facility Start: 05-09-2022 Tobacco smoking stat [facility] Never smoked tobacco [facility] Work Phone: Start: 05-09-2022 Tobacco use and exposure Smokeless tobacco non-user [facility] Start: 05-09-2022 Alcohol intake Current drinke r of alcohol (finding) [facility] Start: 05-09-2022 Alcohol intake [facility] Start: 05-09-2022 Alcohol Comment social [facility] Start: 1970 Sex Assigned At Not on file O [facility] Start: 04-29-2022 End: 05-09-2022 Exposure to SARS-CoV-2 (event) Not sure [facility] Clinical Notes 08-10-2020 to 05-10-2022 MILAGROS Hopkins - 05/10/2022 10:02 AM ESTPlan of Care - Kristine Gilliland RN - 05/10/2022 10:02 AM ESTPlan of Care - Luis Alfredo Ramesh RN - 05/10/2022 1:56 AM ESTDischarge Instructions Note Date & Type Note Facility 05-10-2022 Hospital course Narrative Discharge Summary Name: Valencia Chang Age: 52 y.o. Birthday: 1970 Admit Date: 05/09/2022 7:40 AM Discharge Date: 05/10/22 Discharge Time: 0900 Discharge Unit: [facility] Admission Information Admitting Physician: Endy Andersen MD Discharge Information Discharge Provider: MILAGROS Cordova Problem List There are no hospital problems to display for this patient. Brief Summary of Hospital Course for Discharge Summary: 52 yo male with a history of persistent AF/AFL. He underwent prior EP testing. He had no inducible PSVT, only AF and flutter induced with rapid overdrive pacing. Initially on Sotalol which was decreased due to pauses. Discussed ablation procedure. Now s/p afib ablation on 05/09/[address] Andersen. He was monitored overnight and did well with no apparent complications. He will continue BID sotalol for 1 month as well as ASA and protonix for 30 days. Follow up to be arranged with EP in 3-4 months after a 30 day event monitor in 6 weeks. He will continue anticoagulation with Xarelto. 1. Afib - no Afib overnight. Maintained SR. The day of discharge, the patient was doing well. VS were stable. He denied any complaints of CP, dyspnea, LH, dizziness, palpitations, syncope, N/V, difficulty urinating or ambulating. Physical exam on day of discharge Constitutional: patient is awake, alert and in no distress today with a pleasant affect. Chest: lungs clear to auscultation Cardiovascular: Normal carotid pulses, the JVP is not elevated, regular rate and rhythm; S1 normal, S2 normal, and there are no murmurs, rub or gallops appreciated Extremities: There are no cords or pain on palpation. Pedal edema is none Groin access sites: There are good pulses and there is no significant hematoma. Neurological: She is alert and oriented to person, place and time. Skin: No cyanosis. Nails show no clubbing. ECG: SR 65 Vital signs on the day of discharge 98.4-68-14-117/68 Discharged to home ins table condition with routine follow up arranged as above. Brief Summary of Consults for Discharge Summary: Brief Summary of Procedures and Imaging for Discharge Summary: Summary of last selected lab results and date obtained: Lab Results Component Value Date WBC 12.32 (H) 05/10/2022 HGB 15.9 05/10/2022 HCT 47.1 05/10/2022 PLATELET 293 05/10/2022 MCV 97.1 (H) 05/10/2022 Lab Results Component Value Date SODIUM 137 05/10/2022 POTASSIUM 4.5 05/10/2022 CHLORIDE 104 05/10/2022 CO2 23 05/10/2022 BUN 18 05/10/2022 CREATSERUM 1.25 05/10/2022 GLUCOSE 193 (H) 05/10/2022 No results found for: ALT, TRANSFERASEA, AST, GGT, GAMMAGT, ALKPHOS, BILITOTAL, BILIDIRECT Brief Summary of Labs for Discharge Summary: Discharge Orders MOBILE CARDIAC TELEMETRY Current Outpatient Meds: Medication List for when you go home START taking these medications aspirin 81 MG CHEW chewable tablet Chew 1 tablet daily every morning. Take for 30 days and then stop Start taking on: May 11, 2022 metoprolol succinate 25 MG tablet XL Take 1 tablet by mouth daily. Start in 1 month after stopping sotalol Commonly known as: TOPROL-XL pantoprazole [address] gale STEWART Take 1 tablet by mouth daily. Take for 30 days and then stop Commonly known as: PROTONIX Start taking on: May 11, 2022 CHANGE how you take these medications sotalol 80 MG TABS Take 1 tablet by mouth 2 times daily. Take for 30 days and then stop. PATIENT AND HIS STATE THIS IS HIS CURRENT DOSE. AND CLARIFIED WITH DR. ANDERSEN Commonly known as: BETAPACE What changed: additional instructions CONTINUE taking these medications Rivaroxaban 20 MG tablet Take 1 tablet by mouth daily with dinner. Commonly known as: XARELTO For diagnoses: Paroxysmal atrial fibrillation, Ventricular tachycardia Follow-up: No follow-up provider specified. Upcoming Appointments (up to five)-Some appointments for Medical Center outpatient clinics or diagnostic testing locations are not displayed below Provider Department Dept Phone 08/15/2022 2:30 PM [facility] Arrive at: Arrive to [facility] Registration Desk [phone] documented in this encounter [facility] 05-10-2022 Miscellaneous Notes Problem: Patient Care Overview Goal: Plan of Care Review Outcome: Adequate for Discharge Goal: Individualization & Mutuality Outcome: Adequate for Discharge Goal: Discharge Needs Assessment Outcome: Adequate for Discharge Problem: Arrhythmia/Dysrhythmia (Symptomatic) (Adult) Goal: Signs and Symptoms of Listed Potential Problems Will be Absent, Minimized or Managed (Arrhythmia/Dysrhythmia) Description: Signs and symptoms of listed potential problems will be absent, minimized or managed by discharge/transition of care (reference Arrhythmia/Dysrhythmia (Symptomatic) (Adult) CPG). Outcome: Adequate for Discharge Continuous cardiac monitoring as ordered. Antiarrhythmic given as scheduled. Groin site drsgs CDI at time of discharge. After Visit Summary reviewed with patient by CSF,RN and all questions answered. RN reviewed what medications patient still needs for the day, patient verbalized understanding. IV dc'd with no difficulty and tip intact. Telemetry dc'd. VS stable at time of discharge. Patient being discharged to [facility]. No patient belongings left at bedside. No further issues at time of discharge. Problem: Patient Care Overview Goal: Interdisciplinary Rounds/Family Conf Outcome: Met This Shift Problem: Cardiac Catheterization (Diagnostic/Interventional) (Adult) Goal: Signs and Symptoms of Listed Potential Problems Will be Absent, Minimized or Managed (Cardiac Catheterization) Description: Signs and symptoms of listed potential problems will be absent, minimized or managed by discharge/transition of care (reference Cardiac Catheterization (Diagnostic/Interventional) (Adult) CPG). Outcome: Met This Shift Problem: Arrhythmia/Dysrhythmia (Symptomatic) (Adult) Goal: Signs and Symptoms of Listed Potential Problems Will be Absent, Minimized or Managed (Arrhythmia/Dysrhythmia) Description: Signs and symptoms of listed potential problems will be absent, minimized or managed by discharge/transition of care (reference Arrhythmia/Dysrhythmia (Symptomatic) (Adult) CPG). Outcome: Met This Shift Problem: Patient Care Overview Goal: Plan of Care Review Outcome: Ongoing Goal: Individualization & Mutuality Outcome: Ongoing Goal: Discharge Needs Assessment Outcome: Ongoing Problem: Cardiac Catheterization (Diagnostic/Interventional) (Adult) Goal: Anesthesia/Sedation Recovery Outcome: Completed Pt sleeping Pt complains of back pain 10/19, pt repositioned with pillow under R hip. supportive at bedside. Chrystal Basilio RN documented in this encounter [facility] 05-10-2022 Note Formatting of this n ote might be different from the original. Problem: Patient Care Overview Goal: Plan of Care Review Outcome: Adequate for Discharge Goal: Individualization & Mutuality Outcome: Adequate for Discharge Goal: Discharge Needs Assessment Outcome: Adequate for Discharge Problem: Arrhythmia/Dysrhythmia (Symptomatic) (Adult) Goal: Signs and Symptoms of Listed Potential Problems Will be Absent, Minimized or Managed (Arrhythmia/Dysrhythmia) Description: Signs and symptoms of listed potential problems will be absent, minimized or managed by discharge/transition of care (reference Arrhythmia/Dysrhythmia (Symptomatic) (Adult) CPG). Outcome: Adequate for Discharge Continuous cardiac monitoring as ordered. Antiarrhythmic given as scheduled. Groin site drsgs CDI at time of discharge. After Visit Summary reviewed with patient by CSF,RN and all questions answered. RN reviewed what medications patient still needs for the day, patient verbalized understanding. IV dc'd with no difficulty and tip intact. Telemetry dc'd. VS stable at time of discharge. Patient being discharged to [facility]. No patient belongings left at bedside. No further issues at time of discharge. [facility] 05-10-2022 Note Formatting of this n ote might be different from the original. Problem: Patient Care Overview Goal: Interdisciplinary Rounds/Family Conf Outcome: Met This Shift Problem: Cardiac Catheterization (Diagnostic/Interventional) (Adult) Goal: Signs and Symptoms of Listed Potential Problems Will be Absent, Minimized or Managed (Cardiac Catheterization) Description: Signs and symptoms of listed potential problems will be absent, minimized or managed by discharge/transition of care (reference Cardiac Catheterization (Diagnostic/Interventional) (Adult) CPG). Outcome: Met This Shift Problem: Arrhythmia/Dysrhythmia (Symptomatic) (Adult) Goal: Signs and Symptoms of Listed Potential Problems Will be Absent, Minimized or Managed (Arrhythmia/Dysrhythmia) Description: Signs and symptoms of listed potential problems will be absent, minimized or managed by discharge/transition of care (reference Arrhythmia/Dysrhythmia (Symptomatic) (Adult) CPG). Outcome: Met This Shift Problem: Patient Care Overview Goal: Plan of Care Review Outcome: Ongoing Goal: Individualization & Mutuality Outcome: Ongoing Goal: Discharge Needs Assessment Outcome: Ongoing Problem: Cardiac Catheterization (Diagnostic/Interventional) (Adult) Goal: Anesthesia/Sedation Recovery Outcome: Completed [facility] 05-09-2022 Note Formatting of this n ote might be different from the original. Pt sleeping [facility] 05-09-2022 Note Formatting of this n ote might be different from the original. Pt complains of back pain 5/10, pt repositioned with pillow under R hip. supportive at bedside. Chrystal Basilio RN [facility] 05-09-2022 Hospital Discharge instructions Katie Hernandez, JOSE-CHATA - 05/09/2022 9:39 AM EST EP Patient Information If you have questions or concerns about your EP procedure or EP follow-up care please call: . MILAGROS Rush - 05/09/2022 9:38 AM EST Post Ablation Activity Your activity is restricted only as indicated by your physician. Please refer to education for ablation and other care recommendations. -No driving for 24 hours -Keep incision dry -May resume regular activity in 1-2 weeks unless otherwise notified -Return to work in 1 week -No tub baths or hot tub for 2 weeks or until groin site is healed. MILAGROS Rush - 05/09/2022 9:38 AM EST Diet: Your doctor has recommended that you follow these diet instructions at home. Refer to the patient education materials you received during your hospital stay. If you would like more nutrition counseling, ask your doctor about making an appointment with an outpatient dietitian. Heart Healthy Diet to promote heart health. Choose healthy fats and oils such as canola or olive oil. Limit high cholesterol foods. Avoid added salt and caffeine in your foods. Controlled Carbohydrate Diet This diet controls carbohydrate intake to help manage and maintain consistent blood glucose levels. Simple sugars are limited and carbohydrate intake is balanced throughout the day. Avoid adding salt to your food and use heart healthy fats such as canola or olive oil. GROS Gonzalez - 05/09/2022 9:38 AM EST Images from the original note were not included. NOTIFY PHYSICIAN BLEEDING/BRUISING -If severe bleeding, apply pressure -Increased bleeding from site -Increased bruising or hematoma Chest pain or shortness of breath Respiratory Changes Call your doctor or nurse if you have shortness of breath that gets worse -Cough that gets worse -Coughing up blood Stroke Symptoms Call 911 if you suddenly have any of these signs of a stroke: -Numbness or muscle weakness -Trouble swallowing -Problems talking -Dizziness or feeling unsteady -Severe headache -Confusion SYMPTOMS OF DVT DVT = Deep Vein Thrombus, or Blood Clot -any tender, swollen, or reddened areas from your groin to your heels. -numbness or tingling in groin or calf -the skin on your leg looks pale or blue or it feels cold to touch -any shortness of breath -chest pain -fever or chills NAUSEA: When you are nauseated, you may feel weak and sweaty and notice a lot of saliva in your mouth. Nausea often leads to vomiting. Most of the time you do not need to worry about nausea and vomiting, but they can be signs of other illnesses. The doctor has checked you carefully, but problems can develop later. If you notice any problems or new symptoms, get medical treatment right away. Follow-up care is a lowe part of your treatment and safety. Be sure to make and go to all appointments, and call your doctor if you are having problems. It's also a good idea to know your test results and keep a list of the medicines you take. How can you care for yourself at home? To prevent dehydration, drink plenty of fluids, enough so that your urine is light yellow or clear like water. Choose water and other caffeine-free clear liquids until you feel better. If you have kidney, heart, or liver disease and have to limit fluids, talk with your doctor before you increase the amount of fluids you drink. Rest in bed until you feel better. When you are able to eat, try clear soups, mild foods, and liquids until all symptoms are gone for 12 to 48 hours. Other good choices include dry toast, crackers, cooked cereal, and gelatin dessert, such as Jell-O. When should you call for help? Call 911 anytime you think you may need emergency care. For example, call if: You passed out (lost consciousness) Call your doctor now or seek immediate medical care if: You have symptoms of dehydration, such as: Dry eyes and a dry mouth Passing only a little dark urine Feeling thirstier than usual You have new or worsening belly pain You have a new or higher fever You vomit blood or what looks like coffee grounds Watch closely for changes in your health, and be sure to contact your doctor if: You have on going nausea and vomiting Your vomiting gets worse Your vomiting last longer than 2 days You are not getting better as expected Where can you learn more? Go to https://www.eVropawise.net/osumych art. GROS Gonzalez - 05/09/2022 9:38 AM EST Catheter site care You can remove your bandages the day after the procedure. You may shower 24 to 48 hours after the procedure, if your doctor okays it. Pat the incision dry. Do not soak the catheter site until it is healed. Don't take a bath for 1 week, or until your doctor tells you it is okay. Watch for bleeding from the site. A small amount of blood (up to the size of a quarter) on the bandage can be normal. If you are bleeding, lie down and press on the area for 15 minutes to try to make it stop. If the bleeding does not stop, call your doctor or seek immediate medical care. The following attachments cannot be sent through Care Everywhere.rivaroxaban ([place]izen [place])Safe Use of Non-Warfarin Blood Thinners: Video (Citizen [place])Action Plan after AFib Ablation ([facility]) (Citizen [place])Catheter Ablation: Returning Home: Video (Citizen [place])Atrial Fibrillation and Atrial Flutter ([facility]) (Citizen [place])documented in this encounter [facility] 05-09-2022 History and physical note Chief Complaint Here for AF RFA with anesthesia, and carto after CT at 0840 HPI Valencia Chang is a 52 y.o. male with persistent AF/AFL. He underwent prior EP testing. He had no inducible PSVT, only AF and flutter induced with rapid overdrive pacing. He was placed on low dose sotalol. Follow up monitoring revealed continued episodes of AF with pauses of 3.5 to 4 seconds. His sotalol was decreased to every day. His options were discussed and planned for ablation therapy, pulmonary vein isolation attempt to control his AF non pharmacologically, as scheduled today. Plan for CT prior at 0840. Started xarelto 1 week before ablation, planned to hold OAC x 1 dose pre ablation, as scheduled today Denies any recent ER visits or hospitalizations. No recent CHF hospitalizations. No recent CP, SOB, palpitations, dizziness, syncope, fever, chills, N/V/D, cough, edema or weight gain. No recent TIA or CVA symptoms. No Recent COVID Travel or exposures. No COVID symptoms. States he stopped his xarelto Monday. Last dose was Monday night. He has plently of xarelto at home ,with refills. CHADSVASC score of 0. This am CT: No evidence of left atrium or left atrial appendage thrombus. Patient is a poor historian of his medications. He got sotalol 80mg PO BID filled at his pharmacy 11/2021. But then got sotalol 120mg po BID filled 04/2022. Clarified current dose with Dr. Andersen: it should be 80mg PO [id number]. And patient and his agree that is the dose he is taking at home. He picked up the 120mg RX by accident. Counseled patient he should contact Dr. corea office for any questions or refills regarding his AARX medications. To prevent high risk medication errors. Calling his [facility] pharmacy: [facility], prepress manager and [place] haven been prescribing his sotalol. SDD inclusion criteria: Age <76: 52 LEF >40: yes BMI >24 or <45:Body mass index is 29.41 kg/m . Adequate anticoagulation prior to procedure:xarelto Family/partner support to manage care at home for the day of and the day after the procedure: Patient is still eligible for completion of the protocol based upon opinion of the collection card clerk at the end of the ablation procedure (hemodynamically stable and stable rhythm): TBD No history of urinary retention: denies. No advance pulmonary disease: denies. No congenital heart disease associated with ASD or severe pulmonary HTN:denies. No acute heart failure/congestion: TBD No right phrenic palsy:TBD No inadvertent femoral artery puncture: TBD No pericardial effusion on intraop ICE:TBD Morning case: yes 0900 Lives 1.5 hours away Has smart phone for [employer]. Patient Active Problem List Diagnosis Ventricular tachycardia Paroxysmal atrial fibrillation Past Medical History: Diagnosis Date Arrhythmia KIRAN (obstructive sleep apnea) Past Surgical History: Procedure Laterality Date REPAIR TENDON ACHILLES N/A SEPTOPLASTY N/A Medications Prior to Admission Medication Sig Dispense Refill Last Dose sotalol 120 MG tablet Take 1 tablet by mouth every 12 hours. (Patient taking differently: Take 120 mg by mouth daily.) 60 tablet 1 05/08/2022 Rivaroxaban 20 MG tablet Take 1 tablet by mouth daily with dinner. 30 tablet 5 No Known Allergies Social History Socioeconomic History Marital status: Tobacco Use Smoking status: Never Smokeless tobacco: Never Substance and Sexual Activity Alcohol use: Yes Alcohol/week: 1.0 standard drink Types: 1 Cans of beer per week Comment: social Drug use: Never History reviewed. No pertinent family history. PCP Radha CARLSON MD: ALEXA Anticoagulation: xarelto. Started a week ago. Has the patient missed any doses of anticoagulation. Denies. When was the last dose taken.monday [id number]- Vasc score: 0 Previous antiarrythmic medications: low dose sotalol 2/2 fatigue and michael/pauses. No other AARX therapy. Prior Cardiac testin: FINAL IMPRESSION ==== Normal biventricular function with mild non-ischemic fibrosis. No evidence of infiltrative heart disease. SUMMARY ==== 50 yo M hx of pAF and WCT. CARDIAC MRI LEFT VENTRICLE: LV systolic function is normal. Quantitative LVEF 62 %. LV cavity size is normal. LV wall thickness is normal. VIABILITY: Late gadolinium enhancement shows mild patchy fibrosis in the basal lateral and inferior acharya and basal to mid septum. Focal fibrosis seen in the inferior RV insertion point suggestive of remote RV strain pattern. RIGHT VENTRICLE: RV systolic function is normal. RV cavity size is normal. Quantitative RVEF 58 %. LV/RV SEPTUM: The ventricular septum is intact. LA/RA SEPTUM: The atrial septum is intact. LEFT ATRIUM: LA cavity size is normal. RIGHT ATRIUM: RA cavity size is normal. PERICARDIUM: Pericardium is normal. AORTIC VALVE: Aortic valve leaflets are normal. Peak aortic valve velocity 1.4 cm/sec. MITRAL VALVE: Mitral valve leaflets are normal. There is trivial mitral regurgitation. TRICUSPID VALVE: Tricuspid valve leaflets are normal. There is trivial tricuspid regurgitation. AORTIC ROOT: The aortic root is normal. OTHER FINDINGS: Mild focal T2 elevation at the inferoseptum (52 ms, normal <51 ms) suggestive of mild edema/inflammation. The [place] T1 values measure 950 msec with ECV calculated at 22%. No evidence of diffuse interstitial expansion/fibrosis. Mild bibasilar air space disease of the lungs not fully evaluated on this cardiac focused study. Review of System Constitutional: Negative for fever, weight loss, weight gain and malaise/fatigue. Skin: Negative. HEENT: Negative. Cardiovascular: Negative for leg swelling. Negative for palpitations, chest pain, dyspnea, orthopnea, claudication, edema and PND. Negative for lightheadedness or syncope. Respiratory: Negative for cough. Is not experiencing shortness of breath currently. Gastrointestinal: Negative for abdominal pain, nausea, vomiting, diarrhea, melena, and constipation. Endocrine: Negative for polyuria, polydipsia, heat or cold intolerance. Genitourinary: Negative for frequency or burning with urination. Past history of BPH or difficult catheterization? Denies. Neurological: Negative for dizziness and headaches. Psychiatric: Negative for depression, nervous/anxious and substance abuse. Telemetry/EKG: NSR. BP 130/58 (BP Location: Right arm, BP Position: Lying) Pulse 53 Temp 97.7 F (36.5 C) (Oral) Resp 18 Ht 1.778 m (5' 10 ) Wt 93 kg (205 lb) SpO2 100% BMI 29.41 kg/m Smoking Status Never Body mass index is 29.41 kg/m . Physical Exam General appearance - alert, LOC x 3, well appearing, and in no distress Neck - supple, no significant adenopathy, carotids upstroke normal bilaterally without bruits. Chest - lungs clear to auscultation, respirations even and unlabored. Heart - regular rate and rhythm, S1 and S2 normal, no murmurs, clicks, gallops or rubs, normal bilateral carotid upstroke without bruits, no JVD Abdomen - soft, nontender, nondistended, bowel sounds present x 4 quadrants. Extremities - peripheral pulses normal,no pedal edema, no clubbing or cyanosis Skin - normal coloration and turgor, no rashes, no suspicious skin lesions noted Lab Results Component Value Date SODIUM 138 12/27/2020 POTASSIUM 3.9 12/27/2020 CHLORIDE 106 12/27/2020 CO2 22 12/27/2020 BUN 16 12/27/2020 CREATSERUM 0.88 05/09/2022 GLUCOSE 91 12/27/2020 Lab Results Component Value Date WBC 6.78 05/09/2022 HGB 15.1 05/09/2022 HCT 45.2 05/09/2022 PLATELET 242 05/09/2022 MCV 96.0 (H) 05/09/2022 INR Date Value Ref Range Status 12/22/2020 1.0 0.9 - 1.1 Final 12/21/2020 1.0 0.9 - 1.1 Final PTT Date Value Ref Range Status 12/22/2020 30.8 24.0 - 34.3 sec Final Assessment and Plan 1. Persistent AF, symptomatic: plan for AF RFA with carto after CT at 0840 this am as scheduled -labwork pending -fellow to obtain consent -CT this am: No evidence of left atrium or left atrial appendage thrombus. -last dose of xarelto was Monday. -last dose of sotalol was yesterday am. -patient meets SDD criteria: at home, has phone with televisit capabilities. [facility] 05-09-2022 History and physical note Chief Complaint Here for AF RFA with anesthesia, and carto after CT at 0840 HPI Valencia Chang is a 52 y.o. male with persistent AF/AFL. He underwent prior EP testing. He had no inducible PSVT, only AF and flutter induced with rapid overdrive pacing. He was placed on low dose sotalol. Follow up monitoring revealed continued episodes of AF with pauses of 3.5 to 4 seconds. His sotalol was decreased to every day. His options were discussed and planned for ablation therapy, pulmonary vein isolation attempt to control his AF non pharmacologically, as scheduled today. Plan for CT prior at 0840. Started xarelto 1 week before ablation, planned to hold OAC x 1 dose pre ablation, as scheduled today Denies any recent ER visits or hospitalizations. No recent CHF hospitalizations. No recent CP, SOB, palpitations, dizziness, syncope, fever, chills, N/V/D, cough, edema or weight gain. No recent TIA or CVA symptoms. No Recent COVID Travel or exposures. No COVID symptoms. States he stopped his xarelto Monday. Last dose was Monday night. He has plently of xarelto at home ,with refills. CHADSVASC score of 0. This am CT: No evidence of left atrium or left atrial appendage thrombus. Patient is a poor historian of his medications. He got sotalol 80mg PO BID filled at his pharmacy 11/2021. But then got sotalol 120mg po BID filled 04/2022. Clarified current dose with Dr. Andersen: it should be 80mg PO [id number]. And patient and his agree that is the dose he is taking at home. He picked up the 120mg RX by accident. Counseled patient he should contact Dr. corea office for any questions or refills regarding his AARX medications. To prevent high risk medication errors. Calling his [facility] pharmacy: [facility], prepress manager and [place] haven been prescribing his sotalol. SDD inclusion criteria: Age <76: 52 LEF >40: yes BMI >24 or <45:Body mass index is 29.41 kg/m . Adequate anticoagulation prior to procedure:xarelto Family/partner support to manage care at home for the day of and the day after the procedure: Patient is still eligible for completion of the protocol based upon opinion of the collection card clerk at the end of the ablation procedure (hemodynamically stable and stable rhythm): TBD No history of urinary retention: denies. No advance pulmonary disease: denies. No congenital heart disease associated with ASD or severe pulmonary HTN:denies. No acute heart failure/congestion: TBD No right phrenic palsy:TBD No inadvertent femoral artery puncture: TBD No pericardial effusion on intraop ICE:TBD Morning case: yes 0900 Lives 1.5 hours away Has smart phone for televisit. Patient Active Problem List Diagnosis Ventricular tachycardia Paroxysmal atrial fibrillation Past Medical History: Diagnosis Date Arrhythmia KIRAN (obstructive sleep apnea) Past Surgical History: Procedure Laterality Date REPAIR TENDON ACHILLES N/A SEPTOPLASTY N/A Medications Prior to Admission Medication Sig Dispense Refill Last Dose sotalol 120 MG tablet Take 1 tablet by mouth every 12 hours. (Patient taking differently: Take 120 mg by mouth daily.) 60 tablet 1 05/08/2022 Rivaroxaban 20 MG tablet Take 1 tablet by mouth daily with dinner. 30 tablet 5 No Known Allergies Social History Socioeconomic History Marital status: Tobacco Use Smoking status: Never Smokeless tobacco: Never Substance and Sexual Activity Alcohol use: Yes Alcohol/week: 1.0 standard drink Types: 1 Cans of beer per week Comment: social Drug use: Never History reviewed. No pertinent family history. PCP Radha CARLSON MD: ALEXA Anticoagulation: xarelto. Started a week ago. Has the patient missed any doses of anticoagulation. Denies. When was the last dose taken.monday [id number]- Vasc score: 0 Previous antiarrythmic medications: low dose sotalol 2/2 fatigue and michael/pauses. No other AARX therapy. Prior Cardiac testin: FINAL IMPRESSION ==== Normal biventricular function with mild non-ischemic fibrosis. No evidence of infiltrative heart disease. SUMMARY ==== 50 yo M hx of pAF and WCT. CARDIAC MRI LEFT VENTRICLE: LV systolic function is normal. Quantitative LVEF 62 %. LV cavity size is normal. LV wall thickness is normal. VIABILITY: Late gadolinium enhancement shows mild patchy fibrosis in the basal lateral and inferior acharya and basal to mid septum. Focal fibrosis seen in the inferior RV insertion point suggestive of remote RV strain pattern. RIGHT VENTRICLE: RV systolic function is normal. RV cavity size is normal. Quantitative RVEF 58 %. LV/RV SEPTUM: The ventricular septum is intact. LA/RA SEPTUM: The atrial septum is intact. LEFT ATRIUM: LA cavity size is normal. RIGHT ATRIUM: RA cavity size is normal. PERICARDIUM: Pericardium is normal. AORTIC VALVE: Aortic valve leaflets are normal. Peak aortic valve velocity 1.4 cm/sec. MITRAL VALVE: Mitral valve leaflets are normal. There is trivial mitral regurgitation. TRICUSPID VALVE: Tricuspid valve leaflets are normal. There is trivial tricuspid regurgitation. AORTIC ROOT: The aortic root is normal. OTHER FINDINGS: Mild focal T2 elevation at the inferoseptum (52 ms, normal <51 ms) suggestive of mild edema/inflammation. The [place] T1 values measure 950 msec with ECV calculated at 22%. No evidence of diffuse interstitial expansion/fibrosis. Mild bibasilar air space disease of the lungs not fully evaluated on this cardiac focused study. Review of System Constitutional: Negative for fever, weight loss, weight gain and malaise/fatigue. Skin: Negative. HEENT: Negative. Cardiovascular: Negative for leg swelling. Negative for palpitations, chest pain, dyspnea, orthopnea, claudication, edema and PND. Negative for lightheadedness or syncope. Respiratory: Negative for cough. Is not experiencing shortness of breath currently. Gastrointestinal: Negative for abdominal pain, nausea, vomiting, diarrhea, melena, and constipation. Endocrine: Negative for polyuria, polydipsia, heat or cold intolerance. Genitourinary: Negative for frequency or burning with urination. Past history of BPH or difficult catheterization? Denies. Neurological: Negative for dizziness and headaches. Psychiatric: Negative for depression, nervous/anxious and substance abuse. Telemetry/EKG: NSR. BP 130/58 (BP Location: Right arm, BP Position: Lying) Pulse 53 Temp 97.7 F (36.5 C) (Oral) Resp 18 Ht 1.778 m (5' 10 ) Wt 93 kg (205 lb) SpO2 100% BMI 29.41 kg/m Smoking Status Never Body mass index is 29.41 kg/m . Physical Exam General appearance - alert, LOC x 3, well appearing, and in no distress Neck - supple, no significant adenopathy, carotids upstroke normal bilaterally without bruits. Chest - lungs clear to auscultation, respirations even and unlabored. Heart - regular rate and rhythm, S1 and S2 normal, no murmurs, clicks, gallops or rubs, normal bilateral carotid upstroke without bruits, no JVD Abdomen - soft, nontender, nondistended, bowel sounds present x 4 quadrants. Extremities - peripheral pulses normal,no pedal edema, no clubbing or cyanosis Skin - normal coloration and turgor, no rashes, no suspicious skin lesions noted Lab Results Component Value Date SODIUM 138 12/27/2020 POTASSIUM 3.9 12/27/2020 CHLORIDE 106 12/27/2020 CO2 22 12/27/2020 BUN 16 12/27/2020 CREATSERUM 0.88 05/09/2022 GLUCOSE 91 12/27/2020 Lab Results Component Value Date WBC 6.78 05/09/2022 HGB 15.1 05/09/2022 HCT 45.2 05/09/2022 PLATELET 242 05/09/2022 MCV 96.0 (H) 05/09/2022 INR Date Value Ref Range Status 12/22/2020 1.0 0.9 - 1.1 Final 12/21/2020 1.0 0.9 - 1.1 Final PTT Date Value Ref Range Status 12/22/2020 30.8 24.0 - 34.3 sec Final Assessment and Plan 1. Persistent AF, symptomatic: plan for AF RFA with carto after CT at 0840 this am as scheduled -labwork pending -fellow to obtain consent -CT this am: No evidence of left atrium or left atrial appendage thrombus. -last dose of xarelto was Monday. -last dose of sotalol was yesterday am. -patient meets SDD criteria: at home, has phone with televisit capabilities. documented in this encounter [facility] 08-10-2020 Note [facility] HISTORY & PHYSICAL/DISCHARGE SUMMARY NAME ACCOUNT SEX AGE ADMIT DISCHARGE PT MED. RECORD# NUMBER DATE DATE TYPE VALENCIA CHANG [id number] F 50 08/03/20 1 [id number] ROOM: [facility] DATE OF : 72 DICTATING PHYSICIAN: Abril Stephenson CHIEF COMPLAINT: Heart racing. HISTORY OF PRESENT ILLNESS: This is a 50-year-old who is otherwise healthy. He takes no routine medications. He came to the emergency room after initially he felt his heart racing. He had been having symptoms on and off for over a year. He started to exercise yesterday, which is not unusual for him, and his heart was pounding and he felt it racing and came to the emergency room. He had not taken any medications. On July 14, he was seen by his family physician for sinus infection. He was on amoxicillin for 10 days. No decongestants or [id number]-bskmadu medications. EKG showed atrial fibrillation with rapid ventricular response. He was started on Cardizem drip, as well as beta blockers and admitted to the Special Care Unit. Around midnight last night, he converted to normal sinus rhythm. He has been in sinus michael. His heart rate was down in the 40s, and the Cardizem drip was stopped. Upon evaluation, he is feeling good. He denies any chest pain. He did not get any chest pain when he was exercising. He does not take any medications. No [id number] medications. No illicit drugs. He drinks 2 cups of coffee per day, which he has been doing for many years. PAST MEDICAL HISTORY: No chronic medical conditions. PAST SURGICAL HISTORY: Achilles tendon repair. MEDICATIONS: None. ALLERGIES: No known allergies. FAMILY HISTORY: Father of lung cancer. There is no family history of atrial fibrillation, coronary artery disease, or sudden . SOCIAL HISTORY: The patient is . He drinks alcohol on the weekends, less than 7 drinks per week. No recent heavy alcohol use. No drug use. He works in sales. He does not smoke. He runs 3 to 4 days per week, about 15 miles a week training for a half marathon and also does Cross-Fit. REVIEW OF SYSTEMS: Denies any headaches, acute visual changes. No recent weight changes. No fever or chills. He did have recent sinus infection, which resolved. Page 1 of 4 VALENCIA CHANG History Physical/Discharge Summary VALENCIA CHANG :1970 No itching rashes. No chest pain. He has feeling of a racing heart, and also his heart was pounding and increased with activity. No abdominal pain, bowel or bladder changes. PHYSICAL EXAMINATION GENERAL APPEARANCE: The patient was lying in bed in no acute distress. He was alert, pleasant, and cooperative, well-nourished, well-developed 50-year-old male. VITAL SIGNS: Blood pressure 103/66, heart rate 55, respirations 14, temperature 97.9, and oxygen saturation 96% on room air. Weight is 201 pounds. HEENT: Unremarkable. NECK: Neck is supple. No JVD. LUNGS: Normal respiratory effort, equal lung expansion, clear to auscultation bilaterally. HEART: Michael rate with regular rhythm. No murmurs or gallops appreciated. ABDOMEN: Positive bowel sounds, soft and nontender. EXTREMITIES: Free of pitting edema. Pulses are palpable and normal in the dorsalis pedis bilaterally. NEUROLOGIC: He is alert and oriented. Mood, affect, and memory within normal limits. Speech is clear. He answers questions appropriately. DIAGNOSTIC DATA: Laboratory data: CBC is unremarkable. D-dimer is within normal limits at 203. Magnesium and TSH within normal limits. Creatinine is 1.2 and on admission 1.3. This morning, I do not have any previous laboratories to review. Blood sugar within normal limits. Cholesterol was 180, HDL 34, LDL 136. Chest x-ray showed no infiltrates. Troponin and BNP within normal limits. IMPRESSION: 1. Paroxysmal atrial fibrillation. He has had recurrent symptoms for over 1 year. He converted to normal sinus rhythm. He was initially admitted to the Special Care Unit on telemetry with Cardizem drip, which was discontinued due to sinus bradycardia, low-dose beta amina, aspirin, and statin. He had negative troponin. No signs of congestive heart failure, and CHADS2 score of 0. Due to him being healthy with low risk, it was discussed with him whether he wanted to stay in the hospital for a workup including echocardiogram to assess LV function, any valvular abnormalities, Page 2 of 4 VALENCIA CHANG History Physical/Discharge Summary VALENCIA CHANG :1970 and he did choose to go home with outpatient follow up, which is reasonable as he has been stable. He will be discharged on enteric-coated aspirin 325 mg daily. Initially echocardiogram was ordered for tomorrow as followup; however, his insurance needs pre-approval and needs him to see his primary care physician prior to further testing. He does have a followup appointment with Dr. Radha Jorgensen on August 12 at (more content not included)... [facility] Paroxysmal atrial fibrillation Atrial fibrillation Ventricular tachycardia Paroxysmal ventricular tachycardia Paroxysmal atrial fibrillation Atrial fibrillation Ventricular tachycardia Paroxysmal ventricular tachycardia [facility] N[facility] Auth/Cert Specialty Diagnoses / Procedures Referred By David t Referred To Contact Diagnoses Paroxysmal atrial fibrillation Ventricular tachycardia Paroxysmal atrial fibrillation [I48.0] Ventricular tachycardia [I47.2] Procedures WA COMPRE EP EVAL ABLTJ ATR FIB PULM VEIN ISOLATION ABLATION SCHED INTERCARDIAC A-FIB TRANSEPTAL BY PULM VEIN ISOLATION W/EP EVAL ([id number]) Endy Andersen MD [address] [place] [address] [facility] [address] [place] [address] Referral ID Status Reason Start Date Expiration Date Visits Re quested Visits Authorized [id number] 1 1 [facility] Summary Purpose Family History No Family History Records FoundNo Family History Records FoundNo Family History Records FoundNo Family History Records Found Advance Directives No Advanced Directives Records FoundLatest Code Status on File Code Status Date Activated Date Inactivated Comments Full Code 12/19/2020 1:50 PM Reason for Referral Specialty Diagnoses / Procedures Referred By Contac t Referred To Contact Diagnoses Paroxysmal atrial fibrillation Ventricular tachycardia Procedures CT CARDIAC PULMONARY VENOGRAM WA CHG CT HEART CONTRAST EVAL CARDIAC STRUCT/MORPH Endy Andersen MD [address] [place] [phone] Referral ID Status Reason Start Date Expiration Date Visits Re quested Visits Authorized [id number] Closed 03/09/2022 04/03/2023 1 1 Specialty Diagnoses / Procedures Referred By Contac t Referred To Contact Procedures ECG Endy Andersen MD [address] [place] [phone] Referral ID Status Reason Start Date Expiration Date V isits Requested Visits Authorized [id number] New Request 05/09/2022 06/03/2023 1 1 Specialty Diagnoses / Procedures Referred By Contac t Referred To Contact Diagnoses Paroxysmal atrial fibrillation Procedures MOBILE CARDIAC TELEMETRY Endy Andersen MD [address] [place] [phone] Referral ID Status Reason Start Date Expiration Date V isits Requested Visits Authorized [id number] New Request 05/09/2022 06/03/2023 1 1 Additional Source Comments (unrecognized sect ion and content) No Status Records FoundNo Status Records FoundNo Status Records Found INFORMATION SOURCE (unrecogn ized section and content) DATE CREATED AUTHOR AUTHOR'S ORGANIZ ATION 10/22/2020 [facility] DATE CREATED AUTHOR AUTHOR'S ORGANIZ ATION 09/04/2022 [facility] DATE CREATED AUTHOR AUTHOR'S ORGANIZ ATION 10/02/2022 [facility] Care Teams (unrecognized sec tion and content) Certified Medicine Aide Relationship Specialty Start Date End Date Radha Jorgensen MD [address] [place] [id number] PCP - General Family Medicine 11/26/20 Kaiser Vargas MD [address] [facility] [address] [place] [address] PCP - Referring 1 Cardiovascular Disease 12/21/20 Scheduled Active and Recently Administ ered Medications (unrecognized section and content) PRN Medication Order 05/08/2022 05/09/2022 05/10/2022 acetaminophen (TYLENOL) tablet 325 mg 325 mg, Oral, EVERY 6 HOURS NEEDED, Starting on Mon05/09/22 at 1650, Until Mon05/10/22 at 1202, Mild Pain, Maximum dose of acetaminophen is 4000 mg from all sources in 24 hours., Post-op/Post-Proc 2003 (Given - Provider: Chrystal Basilio, PAULA) HYDROmorphone (DILAUDID) injection 0.2 mg 0.2 mg, Intravenous, EVERY 2 HOURS NEEDED, Starting on Mon05/09/22 at 1650, Until Mon05/10/22 at 1202, Severe Pain, Post-op/Post-Proc 1731 (Given - Provider: Aleena Crump RN)2004 (Given - Provider: Chrystal Basilio, PAULA) lidocaine (XYLOCAINE) 10 mg/mL injection (CANCELED) Infiltration, NEEDED, Starting on Mon05/09/22 at 1503, Until Mon05/09/22 at 1655, Intra-op/Intra-Proc 1503 (Given - Provider: Leno Dailey MD)1503 (Given - Provider: Leno Dailey MD) magnesium oxide (MAG-OX) tablet 800 mg 800 mg, Oral, ADMINISTER DIRECTED, Starting on Mon05/09/22 at 1650, Until Mon05/10/22 at 1202, See admin instructions, For Magnesium 1.6 - 2.0, give 800 mg of Magnesium oxide, Post-op/Post-Proc 0900 (Not Given - Provider: Kristine Gilliland RN - Reason: Patient/family refused) Magnesium Sulfate 4 g in sterile water 50 ml premix IVPB 4 g, Intravenous, Administer over 4 Hours, ADMINISTER DIRECTED, Starting on Mon05/09/22 at 1650, Until Mon05/10/22 at 1202, Other, Magnesium Replacement Therapy, If Magnesium less than 1.6, give 4 g Magnesium Sulfate IVPB over 4 hours (may give over 1 hour if arrhythmias present)., Post-op/Post-Proc ondansetron 4mg/2ml (ZOFRAN) injection 4 mg 4 mg, Intravenous, EVERY 4 HOURS NEEDED, Starting on Mon05/09/22 at 1650, Until Mon05/10/22 at 1202, Nausea / Vomiting, Post-op/Post-Proc oxyCODONE (ROXICODONE) tablet 5 mg(Linked Group 1) 5 mg, Oral, EVERY 4 HOURS NEEDED, Starting on Mon05/09/22 at 1650, Until Mon05/10/22 at 1202, Moderate Pain, Severe Pain, PRN for Moderate Pain. Use for Severe Pain if IV not available for use as initial dose. Higher dose may be administred if lower dose was previously documented as ineffective and did not result in adverse effects (RR<10, decrease in level of consciousness)., Post-op/Post-Proc 2218 (Given - Provider: Luis Alfredo Ramesh RN) oxyCODONE HCl (ROXICODONE) tablet 10 mg(Linked Group 1) 10 mg, Oral, EVERY 4 HOURS NEEDED, Starting on Mon05/09/22 at 1650, Until Mon05/10/22 at 1202, Moderate Pain, Severe Pain, PRN for Moderate Pain. Use for Severe Pain if IV not available for use as initial dose. Higher dose may be administred if lower dose was previously documented as ineffective and did not result in adverse effects (RR<10, decrease in level of consciousness), Post-op/Post-Proc 2218 (See Alternative - Provider: Luis Alfredo Ramesh RN) potassium chloride (K-DUR) tablet ER 20 mEq 20 mEq, Oral, ADMINISTER DIRECTED, Starting on Mon05/09/22 at 1650, Until Mon05/10/22 at 1202, See admin instructions, If Cr 2.0 - 2.5 mg/dL For Potassium less than 3.6, give 20 mEq Potassium Chloride orally, recheck in AM. If Cr greater than 2.5 mg/dL contact physician/LIP for Potassium less than 3.6 for replacement orders. If potassium is low please administer magnesium first if indicated, Post-op/Post-Proc potassium chloride (K-DUR) tablet ER 40-60 mEq 40-60 mEq, Oral, ADMINISTER DIRECTED, Starting on Mon05/09/22 at 1650, Until Mon05/10/22 at 1202, See admin instructions, If Cr less than 2.0 mg/dL 1. For Potassium 3.6 - 4.0, give 40 mEq of Potassium Chloride orally, recheck in the AM. 2. For Potassium less than 3.6, give 60 mEq Potassium Chloride orally, recheck in 8 hours. 3. If potassium is low please administer magnesium first if indicated., Post-op/Post-Proc sodium chloride 0.9% IV solution 500 mL Intravenous, at 10 mL/hr, ADMINISTER DIRECTED, Starting on Mon05/09/22 at 0828, Until Mon05/10/22 at 1202, Per treatment plan, Start the morning of procedure., Pre-op/Pre-Proc sodium chloride 0.9% IV solution Intravenous, at 1 mL/hr, CONTINUOUS NEEDED, Starting on Mon05/09/22 at 1650, Until Mon05/10/22 at 1202, See administration instructions, Per pressure bag for all transduced lines., Post-op/Post-Proc Linked Groups Order Group 1: oxyCODONE (ROXICODONE) tablet 5 mgJump to med 5 mg, Oral, EVERY 4 HOURS NEEDED, Starting on Mon05/09/22 at 1650, Until Mon05/10/22 at 1202, Moderate Pain, Severe Pain
PRN for Moderate Pain. Use for Severe Pain if IV not available for use as initial dose. Higher dose may be administred if lower dose was previously documented as ineffective and did not result in adverse effects (RR<10, decrease in level of consciousness).
Post-op/Post-Proc Or oxyCODONE HCl (ROXICODONE) tablet 10 mgJump to med 10 mg, Oral, EVERY 4 HOURS NEEDED, Starting on Mon05/09/22 at 1650, Until Mon05/10/22 at 1202, Moderate Pain, Severe Pain
PRN for Moderate Pain. Use for Severe Pain if IV not available for use as initial dose. Higher dose may be administred if lower dose was previously documented as ineffective and did not result in adverse effects (RR<10, decrease in level of consciousness)
Post-op/Post-Proc FOR RECORDS PERTAINING TO PATIENTS WHO ARE OR HAVE BEEN ENROLLED IN A CHEMICAL DEPENDENCY/SUBSTANCEABUSE PROGRAM, SOME INFORMATION MAY BE OMITTED. This clinical summary was aggregated from multiple sources. Caution should be exercised in using it in the provision of clinical care. This summary normalizes information from multiple sources, and as a consequence, information in this document may materially change the coding, format and clinical context of patient data. In addition, data may be omitted in some cases. CLINICAL DECISIONS SHOULD BE BASED ON THE PRIMARY CLINICAL RECORDS. [facility] [employer] [facility]. provides no warranty or guarantee of the accuracy or completeness of information in this document.
[2023-06-16 13:16] LABS: Vitamin D,25 Hydroxy 57.9 ng/mL
[2023-06-16 13:31] LABS: AST(SGOT) 18 U/L (15-37); Alanine Aminotransfer ALT/SGPT 34 U/L (16-61); Albumin, Serum 3.5 g/dL (3.2-5.0); Alkaline Phosphatase 69 U/L (45-117); Anion Gap 4 (5-15); BUN 14 mg/dL (7-18); BUN/Creat Ratio 12.6 RATIO (10-20); Calcium,Total 8.8 mg/dL (8.5-10.1); Chloride 106 mmol/L (98-107); Creatinine, Serum 1.11 mg/dL (0.70-1.30); EST Glomerular Filtration Rate 74 mL/min (>60); Est Glom Filt Rate - Afr Amer 89 mL/min (>60); Globulin 3.6 g/dL (2.2-4.2); Glucose 80 mg/dL (74-106); Potassium 4.1 mmol/L (3.5-5.1); Protein, Total 7.1 g/dL (6.4-8.2); Sodium Level 139 mmol/L (136-145); Thyroid Stim Hormone (TSH) 2.09 uIU/mL (0.358-3.74)
== END | disposition home or self-care (01) ==
LOC: MFPLAB 10:44
PROVIDERS: PCP Family Medicine; Visit Provider Family Medicine
DX: R25.2 Cramp and spasm (principal)
CPT/HCPCS: 36415; 80053; 82306; 84443

== ENCOUNTER → 2024-06-10 | Outpatient (CLI) | payer OTHER, SELFPAY ==
[2024-06-10 13:26] LABS: Cholesterol 220 mg/dL (200); High Density Lipoprotein 39 mg/dL; Triglycerides 117 mg/dL; Very Low Density Lipoprotein 23 mg/dL (5-40)
== END | disposition home or self-care (01) ==
LOC: MFPLAB 09:56
PROVIDERS: PCP Family Medicine; Referring Provider Family Medicine; Visit Provider Family Medicine
DX: Z13.220 Encounter for screening for lipoid disorders (principal); Z12.5 Encounter for screening for malignant neoplasm of prostate
CPT/HCPCS: 36415; 80061; 84153; G0103